=== PATIENT | female | born 1990 | race Caucasian/White ===

== ENCOUNTER 2019-07-29 18:23 | Emergency (ER) | payer BC, OTHER ==
[2019-07-29 18:45] VITALS: BP 112/71
[2019-07-29] MEDS ORDERED: Tetan/Diph/Pertus SYR(Tdap)* 0.5 ML SYR(BOOSTRIX) use SYR contains LATEX IM ONE (18:47)
--- NOTE | 2019-07-29 18:58 | UC ---
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 Around 10 am this morning she was helping intubate a cat when it turned and bite her. She washed it with soap and water and used betadine as well. Was told by another vet clinic that she should get a checked out. Unknown last tetanus status It was her friends cat and he states cat is uptodate on rabies shots Meds; reviewed - History of Current Complaint Chief Complaint: UCBiteInjury Stated Complaint: CAT BITE Time Seen by Provider: 07/29/19 18:28 Hx Last Menstrual Period: nexplanon Pain Intensity: 1 - Allergy/Home Medications Allergies/Adverse Reactions: Allergies Allergy/AdvReac Type Severity Reaction Status Date / Time hydrocodone Allergy Hives Verified 07/29/19 18:45 oxycodone Allergy Hives Verified 07/29/19 18:45 propoxyphene [From Darvon] Allergy Hives Verified 07/29/19 18:45 dogs Allergy Eyes Uncoded 07/29/19 18:45 Itchy/Swollen/Red/Watery environmental Allergy Eyes Uncoded 07/29/19 18:45 Itchy/Swollen/Red/Watery Home Medications: Home Medications Amoxicillin/Clavulanate TAB* [Augmentin TAB 875*] 875 mg PO BID #10 tab [Rx] Azelastine 0.1% Nasal (NF) [Astepro 0.1% Nasal (NF)] 1 spray INH DAILY 07/29/19 [History Confirmed 07/29/19] Beclomethasone Dipropionate [Qnasl] 1 spray INH DAILY 07/29/19 [History Confirmed 07/29/19] Etonogestrel [Nexplanon] 1 unit SUBCUT ONCE 07/29/19 [History Confirmed 07/29/19 ] Fexofenadine (NF) [Caroline (NF)] 180 mg PO DAILY 07/29/19 [History Confirmed 11/11] Fluconazole 150 MG TAB* [Diflucan 150 MG TAB*] 150 mg PO ONCE #2 tablet [Rx] Fluoxetine HCl 20 mg PO DAILY 07/29/19 [History Confirmed 07/29/19] Olopatadine HCl 1 drop BOTH EYES DAILY 07/29/19 [History Confirmed 07/29/19] PMH/Surg Hx/FS Hx/Imm Hx Previously Healthy: Yes - Surgical History Surgical History: Yes Surgery Procedure, Year, and Place: mole removal. laboral hip tear repair 2009 - Social History Alcohol Use: Occasionally Substance Use Type: None Smoking Status (MU): Never Smoked Tobacco Review of Systems All Other Systems Reviewed And Are Negative: Yes Physical Exam Triage Information Reviewed: Yes Appearance: Well-Appearing Vital Signs: Initial Vital Signs Temp 98.1 F 07/29/19 18:37 Pulse 69 07/29/19 18:37 Resp 18 07/29/19 18:37 BP 112/71 07/29/19 18:37 Pulse Ox 100 07/29/19 18:37 Vital Signs Reviewed: Yes Eyes: Positive: Conjunctiva Clear Skin: Positive: Other - puncture wound on distal left thumb - area is clean and dry. No erythema. Good pulses and range of motion Course/Dx - Course Course Of Treatment: This is a 29 yr old with a cat bite Area clean and dry Tetanus booster given Will treat empirically with augmentin Start Antibiotics as prescribed Continue to wash area with soap and water and keep it dry and protected If any swelling, redness or pain to area recommend follow up with PCP or return to urgent care - Diagnoses Provider Diagnosis: Cat bite Discharge ED - Sign-Out/Discharge Documenting (check all that apply): Patient Departure All imaging exams completed and their final reports reviewed: No Studies - Discharge Plan Condition: Good Disposition: HOME Prescriptions: Amoxicillin/Clavulanate TAB* [Augmentin TAB 875*] 875 mg PO BID #10 tab Fluconazole 150 MG TAB* [Diflucan 150 MG TAB*] 150 mg PO ONCE #2 tablet Patient Education Materials: Animal Bite (ED) Referrals: Mar Rees MD [Primary Care Provider] - Additional Instructions: Start Antibiotics as prescribed Continue to wash area with soap and water and keep it dry and protected If any swelling, redness or pain to area recommend follow up with PCP or return to urgent care - Billing Disposition and Condition Condition: GOOD Disposition: Home
== END 2019-07-29 18:57 | disposition home or self-care (01) ==
LOC: UCEAST 18:23
DX: S61.052A Open bite of left thumb without damage to nail, initial encounter (principal); Z23 Encounter for immunization; W55.01XA Bitten by cat, initial encounter; Y92.89 Other specified places as the place of occurrence of the external cause; Z88.5 Allergy status to narcotic agent; Z91.09 Other allergy status, other than to drugs and biological substances
CPT/HCPCS: 90471; 90715; 99212; G0463

== ENCOUNTER 2019-07-31 16:02 | Emergency (ER) | payer SELFPAY ==
[2019-07-31 16:24] VITALS: BP 130/79
[2019-07-31] MEDS ORDERED: Ondansetron ODT TAB* 4 MG SL ONE (16:45)
--- NOTE | 2019-07-31 16:46 | UC ---
Abdominal Pain Female HPI - HPI Summary HPI Summary: 29 year old female recently seen for cat bite ~ 2 days ago, started on augmentin. Presents now for diarrhea x 6 stools today, nausea, no vomiting. Patient has history of anxiety, symptoms increased with GI symptoms. currently on prozac. no fever, chills, no abdominal pains. - History of Current Complaint Chief Complaint: UCAbdominalPain Stated Complaint: NAUSEA,DIARRHEA Time Seen by Provider: 07/31/19 16:45 Hx Obtained From: Patient Hx Last Menstrual Period: one year ago ?: No Onset/Duration: Sudden Onset, Lasting Days Timing: Constant Severity Initially: Moderate Severity Currently: Moderate Pain Intensity: 5 Pain Scale Used: 0-10 Numeric Radiates: No Character: Aching Associated Signs and Symptoms: Negative: Fever, Cough, Chest Pain, Dizzy Allergies/Adverse Reactions: Allergies Allergy/AdvReac Type Severity Reaction Status Date / Time hydrocodone Allergy Hives Verified 07/31/19 16:25 oxycodone Allergy Hives Verified 07/31/19 16:25 propoxyphene [From Darvon] Allergy Hives Verified 07/31/19 16:25 dogs Allergy Eyes Uncoded 07/31/19 16:25 Itchy/Swollen/Red/Watery environmental Allergy Eyes Uncoded 07/31/19 16:25 Itchy/Swollen/Red/Watery Home Medications: Home Medications Amoxicillin/Clavulanate TAB* [Augmentin TAB 875*] 875 mg PO BID #10 tab [Rx Confirmed 07/31/19] Azelastine 0.1% Nasal (NF) [Astepro 0.1% Nasal (NF)] 1 spray INH DAILY 07/29/19 [History Confirmed 07/31/19] Beclomethasone Dipropionate [Qnasl] 1 spray INH DAILY 07/29/19 [History Confirmed 07/31/19] Etonogestrel [Nexplanon] 1 unit SUBCUT ONCE 07/29/19 [History Confirmed 07/31/19 ] Fexofenadine (NF) [Caroline (NF)] 180 mg PO DAILY 07/29/19 [History Confirmed 01/11] Fluoxetine HCl 20 mg PO DAILY 07/29/19 [History Confirmed 07/31/19] Olopatadine HCl 1 drop BOTH EYES DAILY 07/29/19 [History Confirmed 07/31/19] Cephalexin CAP* [Keflex CAP*] 500 mg PO TID #15 cap 07/31/19 [Rx] Ondansetron HCl [Zofran] 4 mg PO Q6H PRN #20 tablet 07/31/19 [Rx] PMH/Surg Hx/FS Hx/Imm Hx Previously Healthy: Yes - anxiety - Surgical History Surgical History: Yes Surgery Procedure, Year, and Place: mole removal. laboral hip tear repair 2009 - Family History Known Family History: Positive: Non-Contributory - Social History Occupation: Employed Full-time - [employer] Alcohol Use: Occasionally Substance Use Type: None Smoking Status (MU): Never Smoked Tobacco Review of Systems All Other Systems Reviewed And Are Negative: Yes Constitutional: Negative: Fever, Chills, Fatigue Respiratory: Positive: Negative Cardiovascular: Positive: Negative Gastrointestinal: Positive: Diarrhea, Nausea Genitourinary: Positive: Negative Psychological: Positive: Negative Is Patient Immunocompromised?: No Physical Exam Triage Information Reviewed: Yes Appearance: Well-Appearing, No Pain Distress, Well-Nourished Vital Signs: Initial Vital Signs Temp 97.8 F 07/31/19 16:21 Pulse 92 07/31/19 16:21 Resp 18 07/31/19 16:21 BP 130/79 07/31/19 16:21 Pulse Ox 98 07/31/19 16:21 Vital Signs Reviewed: Yes Eyes: Positive: Conjunctiva Clear ENT: Positive: Hearing grossly normal Abdomen Description: Positive: Nontender, No Organomegaly, Soft. Negative: Bruit, Distended, Guarding, Hepatomegaly, Splenomegaly Bowel Sounds: Positive: Present - NABS x 4 Musculoskeletal Exam: Normal Psychological Exam: Normal Skin Exam: Normal Abd Pain Female Course/Dx - Course Course Of Treatment: - Antibiotics ONLY if area becomes red, swollen and stool is normal. - Continue to monitor stool- if worsens or no improvement within 24-48 hours, return stool for testing - Increase fluids to prevent dehydration - BRAT diet/ bland diet as discussed. - Zofran every 6 hours as needed for nausea. Do not take with Diflucan - Return with abdominal pain, bloating, blood in stools, increased pain, fever, chills. - Continue probiotics - Differential Dx/Diagnosis Differential Diagnosis: Diverticulitis, Pneumonia, Provider Diagnosis: Diarrhea Discharge ED - Sign-Out/Discharge Documenting (check all that apply): Patient Departure All imaging exams completed and their final reports reviewed: No Studies - Discharge Plan Condition: Good Disposition: HOME Prescriptions: Cephalexin CAP* [Keflex CAP*] 500 mg PO TID #15 cap Ondansetron HCl [Zofran] 4 mg PO Q6H PRN #20 tablet PRN Reason: Nausea Patient Education Materials: Dehydration (ED), Acute Diarrhea (ED) Forms: *Work Release Referrals: Mar Rees MD [Primary Care Provider] - Additional Instructions: - Antibiotics ONLY if area becomes red, swollen and stool is normal. - Continue to monitor stool- if worsens or no improvement within 24-48 hours, return stool for testing - Increase fluids to prevent dehydration - BRAT diet/ bland diet as discussed. - Zofran every 6 hours as needed for nausea. Do not take with Diflucan - Return with abdominal pain, bloating, blood in stools, increased pain, fever, chills. - Continue probiotics - Billing Disposition and Condition Condition: GOOD Disposition: Home
== END 2019-07-31 17:20 | disposition home or self-care (01) ==
LOC: UCEAST 16:02
DX: R19.7 Diarrhea, unspecified (principal); R11.2 Nausea with vomiting, unspecified; F41.9 Anxiety disorder, unspecified; Z91.09 Other allergy status, other than to drugs and biological substances; Z88.5 Allergy status to narcotic agent; Z79.899 Other long term (current) drug therapy
CPT/HCPCS: 99212; A9270-GY; G0463